=== PATIENT | female | born 1985 | race African-American/Black ===

== ENCOUNTER 2020-11-14 22:34 | Emergency (ER) | payer BC ==
[~2020-11-14] VITALS: Ht 162.6 cm; Wt 55.0 kg
[2020-11-14] MEDS ORDERED: LORAZEPAM 2MG/ML CPJ IV STA (23:23)
[2020-11-14] MEDS ORDERED: DIPHENHYDRAMINE 50MG/ML VIAL IV STA (23:23)
[2020-11-14] MEDS ORDERED: SODIUM CHLORIDE 0.9% 1,000 ML IV ONE (23:30)
[2020-11-15 00:14] LABS: BASOPHILS % 0.4 % (0.0-2.0); EOSINOPHILS % 0.9 % (0.0-5.0); HEMATOCRIT. 36.8 % (36.0-48.0); HEMOGLOBIN. 12.4 g/dL (12.0-16.0); LYMPHOCYTES % 21.3 % (20.0-50.0); MEAN CORPUSCULAR HEMOGLOBIN 30.2 pg (28.0-32.0); MEAN CORPUSCULAR VOLUME 89.6 fL (81.0-99.0); MEAN PLATELET VOLUME 8.2 fl (7.4-10.4); MONOCYTES % 7.2 % (2.0-8.0); NEUTROPHILS % 70.2 % (40.0-76.0); PLATELET 254 x1000/uL (130-400); RED BLOOD CELL COUNT 4.11 mill/uL (4.2-5.4); RED CELL DISTRIBUTION WIDTH 12.5 % (11.6-14.6)
[2020-11-15 00:52] LABS: *AMPHETAMINES SCREEN URINE NEGATIVE (NEGATIVE); *COCAINE SCREEN URINE NEGATIVE (NEGATIVE); CANNABINOID URINE SCREEN NEGATIVE (NEGATIVE); OPIATES URINE SCREEN NEGATIVE (NEGATIVE); PHENCYCLIDINE URINE SCREEN NEGATIVE (NEGATIVE)
[2020-11-15 00:53] LABS: *BARBITURATES SCREEN URINE NEGATIVE (NEGATIVE)
[2020-11-15 00:54] LABS: *BENZODIAZEPINES SCREEN URINE NEGATIVE (NEGATIVE)
[2020-11-15 00:55] LABS: METHADONE URINE SCREEN NEGATIVE (NEGATIVE)
[2020-11-15 00:55] LABS: ETHANOL BLOOD < 10 mg/dL
[2020-11-15 00:59] LABS: CHLORIDE 108 mEq/L (98-107)
[2020-11-15 05:15] VITALS: BP 115/98
== END 2020-11-15 06:07 | disposition home or self-care (01) ==
LOC: ER 22:34
DX: T43.641A Poisoning by ecstasy, accidental (unintentional), initial encounter (principal); M62.838 Other muscle spasm; M79.7 Fibromyalgia; G47.00 Insomnia, unspecified; Y92.018 Other place in single-family (private) house as the place of occurrence of the external cause
CPT/HCPCS: 36415; 70450; 71045; 80053; 80305; 80320; 81025; 84484; 85025; 96361; 96374; 96375; 99285; J1200; J2060; J7030; G0480